=== PATIENT | female | born 1950 | race Caucasian/White ===

== ENCOUNTER 2017-08-25 13:14 | Emergency (ER) | payer BC ==
[2017-08-25 13:40] LABS: #Eosinphils 0.1 thou/uL (0.0-0.7); #Monocytes 0.6 thou/uL (0.11-0.59); #Neutrophils 4.5 thou/uL (1.40-6.50); %Basophils 0.7 % (0.0-1.0); %Eosinophils 1.7 % (0.0-10.0); %Monocytes 8.3 % (0.0-10.0); %Neutrophils 62.3 % (42.0-75.0); Hemoglobin 13.8 g/dL (12.0-16.0); Mean Corpuscular HGB CONC 33.6 g/dL (32.0-36.0); Mean Corpuscular Hemoglobin 30.4 pg (27.0-31.0); Mean Corpuscular Volume 90.5 fl (81.0-99.0); Mean Platelet Volume 9.5 fL (7.4-10.4); Platelet Count 156 thou/uL (130-400); RBC Distribution Width 11.9 % (11.5-14.5); Red Blood Cell (RBC) Count 4.55 mill/uL (4.20-5.40); White Blood Cell (WBC) Count 7.3 thou/uL (4.8-10.8)
--- NOTE | 2017-08-25 14:01 | RAD ---
PORTABLE CHEST: Date: 08/25/17 HISTORY: Dizziness. FINDINGS: Lungs are clear. Heart is mildly prominent, but stable from prior exam of 04/21/16. IMPRESSION: No acute findings. POS: [facility]
[2017-08-25 14:03] LABS: ALT (SGPT) 10 U/L (8-55); AST (SGOT) 16 U/L (5-34); Albumin 4.4 g/dL (3.4-4.8); Alkaline Phosphatase 72 U/L (40-150); Anion Gap 8 mmol/L (10-20); BUN (Urea Nitrogen) 13 mg/dL (9.8-20.1); Bilirubin, Total 0.6 mg/dL (0.2-1.2); CK (CPK) 134 U/L (29-168); Calc. Creatinine Clearance 0 mL/min (70-130); Calcium 9.4 mg/dL (7.8-10.44); Carbon Dioxide 32 mmol/L (23-31); Chloride 104 mmol/L (98-107); Estimated GFR-MDRD 71; Globulin 3.1 g/dL (2.4-3.5); Glucose 100 mg/dL (80-115); Protein, Total 7.5 g/dL (6.0-8.3); Sodium 140 mmol/L (136-145)
[2017-08-25 14:08] LABS: CKMB 4.1 ng/mL (0-6.6); Troponin I Less than 0.010 ng/mL (< 0.028)
[2017-08-25] MEDS ORDERED: Meclizine HCl 25 MG TAB ONE (14:22)
== END 2017-08-25 15:55 | disposition home or self-care (01) ==
LOC: ERS 13:14
DX: H81.10 Benign paroxysmal vertigo, unspecified ear (principal); E03.9 Hypothyroidism, unspecified; I10 Essential (primary) hypertension
CPT/HCPCS: 71045; 80053; 82553; 83690; 83880; 84484; 85025; 93005; 94760

== ENCOUNTER 2018-01-29 15:05 | Outpatient (CLI) | payer BC | END 2018-01-29 15:06 | disposition home or self-care (01) | LOC: BICMAMMO 15:05 | PROVIDERS: ATTEND Family Medicine | DX: Z12.31 Encounter for screening mammogram for malignant neoplasm of breast (principal); R92.1 Mammographic calcification found on diagnostic imaging of breast | CPT/HCPCS: 77063; 77067 ==

== ENCOUNTER 2018-04-23 11:30 | Observation (INO) | payer BC ==
[2018-04-23 12:16] LABS: #Basophils 0.1 thou/uL (0.0-0.2); #Eosinphils 0.1 thou/uL (0.0-0.7); #Lymphocytes 1.6 thou/uL (1.20-3.40); #Monocytes 0.5 thou/uL (0.11-0.59); #Neutrophils 5.3 thou/uL (1.40-6.50); %Basophils 0.7 % (0.0-1.0); %Eosinophils 1.6 % (0.0-10.0); %Lymphocytes 21.2 % (21.0-51.0); %Monocytes 6.4 % (0.0-10.0); %Neutrophils 70.1 % (42.0-75.0); Hemoglobin 13.3 g/dL (12.0-16.0); Mean Corpuscular HGB CONC 33.2 g/dL (32.0-36.0); Mean Corpuscular Hemoglobin 30.5 pg (27.0-31.0); Mean Corpuscular Volume 91.8 fL (78.0-98.0); Mean Platelet Volume 10.9 fL (7.4-10.4); Platelet Count 167 thou/uL (130-400); RBC Distribution Width 11.9 % (11.5-14.5); Red Blood Cell (RBC) Count 4.38 mill/uL (4.20-5.40); White Blood Cell (WBC) Count 7.6 thou/uL (4.8-10.8)
--- NOTE | 2018-04-23 12:16 | RAD ---
TWO VIEWS CHEST: Date: 04-23-18 Provided Clinical History: Chest pain. FINDINGS: Comparison 08-25-17. The cardiac silhouette remains enlarged. No focal consolidation, pleural fluid or pneumothorax appare nt. IMPRESSION: Cardiomegaly without evidence for an acute cardiopulmonary process. POS: [facility]
[2018-04-23 12:55] LABS: ALT (SGPT) 12 U/L (8-55); AST (SGOT) 18 U/L (5-34); Albumin 4.2 g/dL (3.4-4.8); Alkaline Phosphatase 61 U/L (40-150); Anion Gap 12 mmol/L (10-20); BUN (Urea Nitrogen) 18 mg/dL (9.8-20.1); Bilirubin, Total 0.7 mg/dL (0.2-1.2); CK (CPK) 111 U/L (29-168); Calc. Creatinine Clearance 0 mL/min (70-130); Calcium 9.5 mg/dL (7.8-10.44); Carbon Dioxide 27 mmol/L (23-31); Chloride 103 mmol/L (98-107); Estimated GFR-MDRD 57; Globulin 2.7 g/dL (2.4-3.5); Glucose 130 mg/dL (80-115); Potassium 4.4 mmol/L (3.5-5.1); Protein, Total 6.9 g/dL (6.0-8.3); Sodium 138 mmol/L (136-145)
[2018-04-23] MEDS ORDERED: Aspirin Chewable 81 MG TAB ONE (13:43)
[2018-04-23] MEDS ORDERED: Guaifenesin DM 100-10/5 ML UDCUP PO PRN (14:34)
[2018-04-23] MEDS ORDERED: Acetaminophen 325 MG TAB PO PRN (14:34)
[2018-04-23] MEDS ORDERED: Nitroglycerin 0.4 MG TAB (25 Tab Bottle) PO PRN (14:34)
[2018-04-23] MEDS ORDERED: Senokot S 8.6-50 MG TAB PO PRN (14:34)
--- NOTE | 2018-04-23 16:12 | HP ---
REASON FOR ADMISSION: Chest pain. HISTORY OF PRESENTING ILLNESS: The patient gives history of having off and on chest pain from the last 2 weeks. This was retrosternal, pressure-like, and associated with shortness of breath. These episodes were coming mostly on exertion. She felt like she had low energy after these episodes. She went to see Dr. Peres this morning and was found to have had elevated blood pressure and her EKG was abnormal in his office. She was sent to emergency room for further workup. Currently, has no complaints of chest pain, palpitations, PND, or orthopnea. No complaints of fever or myalgias. No cough or expectoration. PAST MEDICAL AND SURGICAL HISTORY: History of hypertension, but has not been on any medication as this got resolved previously. Hypothyroidism, prior history of thyroidectomy, left knee replacement, bilateral foot surgery, appendectomy, and tonsillectomy. CURRENT MEDICATIONS: The patient is on levothyroxine and pravastatin. ALLERGIES: NO KNOWN DRUG ALLERGIES. PERSONAL HISTORY: Does not abuse alcohol or drugs. No history of smoking. FAMILY HISTORY: Mother of leukemia and its complications at the age of 74 years. Father at the age of 92 years due to natural causes. Code status is full. Power of immigration attorney is her . REVIEW OF SYSTEMS: CONSTITUTIONAL: Negative for weight loss or gain, ability to conduct usual activities. SKIN: Negative for rash, itching. EYES: Negative for double vision, pain. ENT/MOUTH: Negative for nose bleeding, neck stiffness, pain, tenderness. CARDIOVASCULAR: Negative for palpitations, dyspnea on exertion, orthopnea. RESPIRATORY: Negative for shortness of breath, wheezing, cough, hemoptysis, fever or night sweats. GASTROINTESTINAL: Negative for poor appetite, abdominal pain, heartburn, nausea , vomiting, constipation, or diarrhea. GENITOURINARY: Negative for urgency, frequency, dysuria, nocturia. MUSCULOSKELETAL: Negative for pain, swelling. NEUROLOGIC/PSYCHIATRIC: Negative for anxiety, depression. ALLERGY/IMMUNOLOGIC: Negative for skin rash, bleeding tendency. PHYSICAL EXAMINATION: GENERAL: The patient is a 67-year-old female, who is currently not in any acute distress. VITAL SIGNS: Blood pressure 124/94, pulse 72 per minute, respiratory rate 18 per minute, temperature 97.8 degrees Fahrenheit, and saturating 95% on room air. NECK: Supple. No elevated JVD. HEENT: Eyes; extraocular muscles intact. Pupils reacting to light. Oral cavity, mucous membranes are moist. No exudates or congestion. CARDIOVASCULAR: S1 and S2 heard. Regular rhythm. RESPIRATORY SYSTEM: Air entry 1+ bilateral. No rales or rhonchi. ABDOMEN: Soft. Bowel sounds heard. No tenderness, rigidity, or guarding. EXTREMITIES: No peripheral edema or calf tenderness vascular system peripheral pulses 2+ bilateral. No ischemic ulcerations or gangrene. CENTRAL NERVOUS SYSTEM: No gross focal deficits noted. The patient is alert, awake, and oriented well. PSYCHIATRIC: The patient's mood is euthymic. No hallucinations or delusions. LABORATORY DATA: White count of 7, hemoglobin and hematocrit of 13 and 40, platelet count 167, MCV is 91 with 70% neutrophils. Electrolytes stable. BUN 18, creatinine 0.9, serum glucose 130. One set of troponin is negative. Liver enzymes are within normal limits. Albumin is 4.2. Chest x-ray, two view done shows cardiomegaly without any acute infiltrate. The patient has had a nuclear stress test done in April of 2016, which showed no reversible ischemia. Her EF was 67% with normal wall motion and thickening seen then. EKG done now shows normal sinus rhythm at 70 beats per minute. There is T-wave inversion seen in V5 and V6. There is also questionable Q-waves seen in V1 and V2. CLINICAL IMPRESSION AND PLAN: The patient will be under observation on telemetry for chest pain rule out acute coronary syndrome. She has had exertional chest pain. The patient has had prior stress test done in April of 2016 and we will repeat another stress test in view of new EKG changes in the septal and lateral wall. We will also obtain Cardiology consultation with Dr. Moody who is education program associate in view of the patient's typical chest pain. She will be on full-dose aspirin, small dose of lopressor which she will be on full-dose aspirin. We will continue Lipitor, Synthroid, small dose of Lopressor for now. Echo with 2D Doppler for LV function in view of cardiomegaly seen on chest x-ray. Free T3, free T4 with TSH in view of low energy issues to rule out to adequately dose her levothyroxine if needed. She will be kept n.p.o. after midnight. The patient had a coffee earlier this morning. Job ID: [id number] [facility]
[2018-04-23 16:28] LABS: Troponin I Less than 0.010 ng/mL (< 0.028)
[2018-04-23 16:47] LABS: Free T4 (Free Thyroxine) 1.1 ng/dL (0.70-1.48); Thyroid Stimulating Hormone 1.5876 uIU/mL (0.35-4.94)
[2018-04-23 19:04] LABS: Troponin I Less than 0.010 ng/mL (< 0.028)
[2018-04-23] MEDS: Atorvastatin Calcium 10 MG TAB PO SCH (20:38)
[2018-04-23] MEDS ORDERED: Metoprolol Tartrate 25 MG TAB PO SCH (21:00)
[2018-04-24 05:40] LABS: #Eosinphils 0.1 thou/uL (0.0-0.7); #Lymphocytes 1.8 thou/uL (1.20-3.40); #Monocytes 0.6 thou/uL (0.11-0.59); #Neutrophils 3.7 thou/uL (1.40-6.50); %Basophils 0.8 % (0.0-1.0); %Eosinophils 2.3 % (0.0-10.0); %Lymphocytes 28.5 % (21.0-51.0); %Monocytes 9.1 % (0.0-10.0); %Neutrophils 59.4 % (42.0-75.0); Hemoglobin 12.1 g/dL (12.0-16.0); Mean Corpuscular HGB CONC 32.8 g/dL (32.0-36.0); Mean Corpuscular Hemoglobin 30.6 pg (27.0-31.0); Mean Corpuscular Volume 93.3 fL (78.0-98.0); Mean Platelet Volume 10.8 fL (7.4-10.4); Platelet Count 144 thou/uL (130-400); RBC Distribution Width 12.1 % (11.5-14.5); Red Blood Cell (RBC) Count 3.96 mill/uL (4.20-5.40); White Blood Cell (WBC) Count 6.2 thou/uL (4.8-10.8)
[2018-04-24 06:01] LABS: Anion Gap 11 mmol/L (10-20); BUN (Urea Nitrogen) 21 mg/dL (9.8-20.1); Calc. Creatinine Clearance 93 mL/min (70-130); Calcium 9.3 mg/dL (7.8-10.44); Carbon Dioxide 26 mmol/L (23-31); Cardiac Risk 2.4 (Less than 4.5); Chloride 106 mmol/L (98-107); Cholesterol 132 mg/dl (< 200 Desired); Estimated GFR-MDRD 68; Glucose 89 mg/dL (80-115); HDL Cholesterol 54 mg/dL (>60 Neg Risk); LDL Cholesterol, Calculated 62 mg/dL; Potassium 4.2 mmol/L (3.5-5.1); Sodium 139 mmol/L (136-145); Triglycerides 80 mg/dL (Less than 150)
[2018-04-24] MEDS: Levothyroxine Sodium 50 MCG TAB PO SCH (06:03)
[2018-04-24] MEDS ORDERED: Enoxaparin Sodium 40 MG/0.4 ML SYRINGE SC SCH (09:00)
[2018-04-24] MEDS ORDERED: ADENOSINE 60 MG/20 ML VIAL ONE (09:08)
[2018-04-24] MEDS: Aspirin 325 MG TAB PO SCH (10:56)
--- NOTE | 2018-04-24 12:18 | PDOC.PN ---
- Subjective Encounter Start Date: 04/24/18 Encounter Start Time: 09:40 Subjective: no chest pain or palp -: at bedside confirms she snores and might have apneic spells - Objective Resuscitation Status - Order Detail: 04/23/18 14:30 Resuscitation Status Routine Resuscitation Status: FULL: Full Resuscitation MAR Reviewed: Yes Vital Signs & Weight: Vital Signs (12 hours) Temp Pulse Resp BP BP Pulse Ox 04/24/18 11:55 98.1 F 60 16 134/62 96 04/24/18 07:10 98.8 F 52 L 16 144/70 H 93 L 04/24/18 04:23 97.9 F 50 L 16 147/65 H 93 L Weight Weight 200 lb 12.8 oz I&O: 04/23/18 04/24/18 04/25/18 06:59 06:59 06:59 Intake Total 810 Output Total 200 Balance 610 Result Diagrams: 04/24/18 04:55 04/24/18 04:55 Phys Exam - Physical Examination HEENT: PERRLA, moist MMs Neck: no JVD, supple Respiratory: no wheezing, no rales Cardiovascular: RRR, no significant murmur Gastrointestinal: soft, non-tender, positive bowel sounds Musculoskeletal: no edema, pulses present Neurological: non-focal, moves all 4 limbs Psychiatric: normal affect, A&O x 3 Dx/Plan (1) Chest pain Code(s): R07.9 - CHEST PAIN, UNSPECIFIED Status: Acute (2) HTN (hypertension) Code(s): I10 - ESSENTIAL (PRIMARY) HYPERTENSION Status: Acute Qualifiers: Hypertension type: essential hypertension Qualified Code(s): I10 - Essential (primary) hypertension Comment: mild (3) Obesity (BMI 30.0-34.9) Code(s): E66.9 - OBESITY, UNSPECIFIED Status: Chronic (4) ERASTO (obstructive sleep apnea) Code(s): G47.33 - OBSTRUCTIVE SLEEP APNEA (ADULT) (PEDIATRIC) Status: Suspected (5) Hypothyroidism Code(s): E03.9 - HYPOTHYROIDISM, UNSPECIFIED Status: Chronic Qualifiers: Hypothyroidism type: unspecified Qualified Code(s): E03.9 - Hypothyroidism , unspecified (6) Dyslipidemia Code(s): E78.5 - HYPERLIPIDEMIA, UNSPECIFIED Status: Chronic - Plan await stress test results -: hemostable, continue asp, lipitor and synthroid -: trop x 3 -ve, ldl is 62, no BB as pt got bradycardic this am -: await cardiology opinion in view of exertional chest pain with sob -: recent weight gain and symptoms s/o ERASTO for outpt sleep study via pcp * . Review of Systems - Medications/Allergies Allergies/Adverse Reactions: Allergies Allergy/AdvReac Type Severity Reaction Status Date / Time No Known Allergies Allergy Verified 04/22/16 02:53 Medications: Current Medications Acetaminophen (Tylenol) 650 mg PO Q4H PRN PRN Reason: Headache/Fever/Mild Pain (1-3) Aspirin (Aspirin) 325 mg PO DAILY [facility] Last Admin: 04/24/18 10:56 Dose: Not Given Atorvastatin Calcium (Lipitor) 10 mg PO HS [facility] Last Admin: 04/23/18 20:38 Dose: 10 mg Enoxaparin Sodium (Lovenox) 40 mg SC 0900 [facility] Last Admin: 04/24/18 10:56 Dose: Not Given Guaifenesin/Dextromethorphan (Robitussin Dm) 15 ml PO Q4H PRN PRN Reason: Cough Influenza Virus Vacc Triv Types A&B (Fluzone High-Dose 2017- Syr) 0.5 ml IM .ONCE ONE Stop: 04/24/18 21:01 Levothyroxine Sodium (Synthroid) 50 mcg PO 0600 [facility] Last Admin: 04/24/18 06:03 Dose: 50 mcg Nitroglycerin (Nitrostat) 0.4 mg PO Q5MIN PRN PRN Reason: Chest Pain Senna/Docusate Sodium (Senokot S) 2 tab PO BID PRN PRN Reason: Constipation
[2018-04-24] MEDS ORDERED: Communication Order-Pharmacy FS SCH (13:00)
--- NOTE | 2018-04-24 15:10 | CON ---
DATE OF CONSULTATION: HISTORY OF PRESENT ILLNESS: The patient is a 67-year-old woman, who presents with increasing dyspnea and chest discomfort. The patient has a previous history of chest pain. She was seen in May of 2014. She underwent a stress test and was found to have normal left ventricular ejection fraction of 57% with no evidence of ischemia. She was noted to have left ventricular hypertrophy on her electrocardiogram. The patient was started on antihypertensive medications. The patient was then readmitted in April here in 2016 with atypical chest pain. She underwent a Cardiolite stress test and was found to have normal left ventricular ejection fraction of 67% with no evidence of ischemia. The patient was in her usual state of health until a month ago when she started having dyspnea. She reports this occurs with minimal exertion. She states that she also develops midsternal chest pain that is relieved at rest. She also states at times this chest pain is present when she is sitting. The patient denies having any PND or orthopnea. PAST MEDICAL HISTORY: 1. Hypertension. 2. Dyslipidemia. 3. Thyroid disorder. 4. Anxiety. PAST SURGICAL HISTORY: Hysterectomy, thyroid surgery, appendectomy, foot surgery , and knee surgery. SOCIAL HISTORY: Nonsmoker. MEDICATIONS: 1. Synthroid 50 mcg daily. 2. Pravachol 40 at bedtime. ALLERGIES: NO KNOWN DRUG ALLERGIES. REVIEW OF SYSTEMS: Ten point system otherwise unremarkable. No history of easy bruising or bleeding. PHYSICAL EXAMINATION: GENERAL: Obese woman, in no acute distress. VITAL SIGNS: Blood pressure was 134/64. NECK: No jugular venous distention. LUNGS: Clear to auscultation. HEART: Regular rate and rhythm. Normal S1, S2. No murmurs. ABDOMEN: Nondistended. EXTREMITIES: Showed no edema. Vascular radial pulses are 2+. LABORATORY RESULTS: Sodium 139, potassium 4.2, chloride 106, bicarb 26, BUN 21, creatinine 2.8, and glucose 68. Troponin less than 0.01. BNP 142. TSH was 1.58. Her EKG revealed normal sinus rhythm with left ventricular hypertrophy and T- wave abnormality suggestive of a repolarization abnormality. IMPRESSION: 1. Chest pain with some features suggestive of angina. 2. Dyspnea. 3. Hypertension. 4. Obesity. This patient presents with chest discomfort and dyspnea. Her cardiac enzymes revealed no evidence of myocardial infarction. The patient underwent a stress test today. We will check the patient's results. The patient has evidence of severe left ventricular hypertrophy. It is unclear why she is no longer on antihypertensive medications. We will check the patient's echocardiogram. We will follow this patient with you through her hospitalization. Job ID: [id number] [facility]
[2018-04-24] MEDS: Carvedilol 6.25 MG TAB PO SCH (17:35)
[2018-04-24] MEDS: Atorvastatin Calcium 10 MG TAB PO SCH (21:08)
[2018-04-25] MEDS: Carvedilol 6.25 MG TAB PO SCH (05:43)
[2018-04-25] MEDS: Levothyroxine Sodium 50 MCG TAB PO SCH (05:44)
[2018-04-25] MEDS: Aspirin 325 MG TAB PO SCH (05:44)
[2018-04-25] MEDS ORDERED: Nitroglycerin 100MG/250ML BOT 0 ML ONE (08:11)
[2018-04-25] MEDS ORDERED: Heparin 10,000 UNITS/1 ML VIAL ONE (08:11)
[2018-04-25 08:29] VITALS: TEMP 98.5
--- NOTE | 2018-04-25 08:54 | NM ---
STRESS ONLY MYOCARDIAL PERFUSION STUDY: 04/24/2018 HISTORY: Chest pain. The patient was scheduled to return today for the resting portion of the study, but the patient was b eing taken to the labor custodian for further evaluation and, as a result, only stress images were provided. RADIOPHARMACEUTICAL: Technetium 99m sestamibi 33 millicuries IV at stress. FINDINGS: No significant defect is present on the stress images to suggest an area of scarring or ischemia. Ga amber images demonstrate normal ventricular wall motion and wall thickening. The calculated left ventr icular ejection fraction is 58%. The left ventricular ejection fraction on the prior study of 2016 was 67%. IMPRESSION: 1. Stress only myocardial perfusion study without a significant defect visualized to suggest an area of ischemia or scarring. 2. Normal left ventricular ejection fraction of 58%. However, the left ventricular ejection fractio n is diminished compared to prior study in 2017, when the left ventricular ejection fraction was 67%. POS: [facility]
[2018-04-25] MEDS ORDERED: Midazolam HCl 2 mg/2 ml Vial ONE (09:10)
[2018-04-25] MEDS ORDERED: Nitroglycerin 0.4 MG TAB (25 Tab Bottle) SL PRN (09:29)
[2018-04-25] MEDS ORDERED: Acetaminophen/Codeine 30-300mg Tablet PO PRN ×2 (09:29)
[2018-04-25] MEDS ORDERED: Sodium Chloride 0.9% 200 ML IV PRN (09:29)
[2018-04-25] MEDS ORDERED: Iopamidol 370 76% 100 ML VIAL ONE (10:51)
--- NOTE | 2018-04-25 11:30 | PDOC.PN ---
- Subjective Encounter Start Date: 04/25/18 Encounter Start Time: 09:45 Subjective: no chest pain or sob or palp - Objective Resuscitation Status - Order Detail: 04/23/18 14:30 Resuscitation Status Routine Resuscitation Status: FULL: Full Resuscitation MAR Reviewed: Yes Vital Signs & Weight: Vital Signs (12 hours) Temp Pulse Resp BP BP Pulse Ox 04/25/18 08:00 98.5 F 54 L 16 154/62 H 96 04/25/18 05:43 144/61 H 04/25/18 04:45 97.9 F 55 L 16 144/61 H 94 L Weight Weight 200 lb 12.8 oz I&O: 04/24/18 04/25/18 04/26/18 06:59 06:59 06:59 Intake Total 810 1320 Output Total 200 Balance 610 1320 Result Diagrams: 04/24/18 04:55 04/24/18 04:55 Phys Exam - Physical Examination HEENT: PERRLA, moist MMs Neck: no JVD, supple Respiratory: no wheezing, no rales Cardiovascular: RRR, no significant murmur Gastrointestinal: soft, non-tender, positive bowel sounds Musculoskeletal: no edema, pulses present Neurological: non-focal, moves all 4 limbs Psychiatric: normal affect, A&O x 3 Dx/Plan (1) Chest pain Code(s): R07.9 - CHEST PAIN, UNSPECIFIED Status: Acute Comment: non cardiac , cath normal coronaries (2) HTN (hypertension) Code(s): I10 - ESSENTIAL (PRIMARY) HYPERTENSION Status: Acute Qualifiers: Hypertension type: essential hypertension Qualified Code(s): I10 - Essential (primary) hypertension Comment: mild (3) Obesity (BMI 30.0-34.9) Code(s): E66.9 - OBESITY, UNSPECIFIED Status: Chronic (4) ERASTO (obstructive sleep apnea) Code(s): G47.33 - OBSTRUCTIVE SLEEP APNEA (ADULT) (PEDIATRIC) Status: Suspected (5) Hypothyroidism Code(s): E03.9 - HYPOTHYROIDISM, UNSPECIFIED Status: Chronic Qualifiers: Hypothyroidism type: unspecified Qualified Code(s): E03.9 - Hypothyroidism , unspecified (6) Dyslipidemia Code(s): E78.5 - HYPERLIPIDEMIA, UNSPECIFIED Status: Chronic - Plan cath showed normal coronaries -: may dc home if ok with cardiology -: to have outpt sleep study via pcp referal -: continue coreg, pravachol * . Review of Systems - Medications/Allergies Allergies/Adverse Reactions: Allergies Allergy/AdvReac Type Severity Reaction Status Date / Time No Known Allergies Allergy Verified 04/22/16 02:53 Medications: Current Medications Acetaminophen (Tylenol) 650 mg PO Q4H PRN PRN Reason: Headache/Fever/Mild Pain (1-3) Acetaminophen/Codeine Phosphate (Tylenol #3) 1 tab PO Q4H PRN PRN Reason: Mild Pain (1-3) Acetaminophen/Codeine Phosphate (Tylenol #3) 2 tab PO Q4H PRN PRN Reason: Moderate Pain (4-6) Aspirin (Aspirin) 325 mg PO DAILY [facility] Last Admin: 04/25/18 05:44 Dose: 325 mg Atorvastatin Calcium (Lipitor) 10 mg PO HS [facility] Last Admin: 04/24/18 21:08 Dose: 10 mg Carvedilol (Coreg) 6.25 mg PO BID-WM [facility] Last Admin: 04/25/18 05:43 Dose: 6.25 mg Guaifenesin/Dextromethorphan (Robitussin Dm) 15 ml PO Q4H PRN PRN Reason: Cough Sodium Chloride (Normal Saline 0.9%) 200 mls @ 0 mls/hr IV ONE PRN PRN Reason: SBP < 90 Stop: 04/25/18 12:00 Levothyroxine Sodium (Synthroid) 50 mcg PO 0600 [facility] Last Admin: 04/25/18 05:44 Dose: 50 mcg Miscellaneous Information (Communication Order-Pharmacy) 0 each FS ONE [facility] Stop: 04/25/18 13:01 Nitroglycerin (Nitrostat) 0.4 mg SL Q5MIN PRN PRN Reason: Chest Pain Senna/Docusate Sodium (Senokot S) 2 tab PO BID PRN PRN Reason: Constipation Sodium Chloride (Flush - Normal Saline) 10 ml IVF Q12HR [facility] Sodium Chloride (Flush - Normal Saline) 10 ml IVF PRN PRN PRN Reason: Saline Flush
--- NOTE | 2018-04-25 16:02 | DIS ---
DATE OF ADMISSION: 04/23/2018 DATE OF DISCHARGE: 04/25/2018 DISCHARGE DISPOSITION: Home. PRIMARY DISCHARGE DIAGNOSIS: Chest pain, which is noncardiac. SECONDARY DISCHARGE DIAGNOSES: 1. Hypertension. 2. Hypothyroidism. 3. Dyslipidemia. 4. Obesity. 5. Possible obstructive sleep apnea. PROCEDURES DONE DURING HOSPITALIZATION: The patient had a chest x-ray done on the day of admission, which showed cardiomegaly without acute cardiopulmonary disease. Stress only myocardial perfusion study done showed no significant defect to suggest area of ischemia or scarring. Ejection fraction was 58%. Cardiac catheterization showed normal coronaries. Echo with 2D Doppler showed EF of 45%-50%, moderate concentric LVH was seen. H and H 12 and 36, platelet count 144, MCV is 93. Total cholesterol 132, triglycerides 80, LDL 62, HDL 54. Free T3 of 2.3. Free T4 of 1.1. TSH 1.58. BNP 142. Troponin x3 was negative. INPATIENT CONSULT: Dr. Chen for Cardiology. DISCHARGE MEDICATION: 1. Levothyroxine 75 mcg p.o. daily. 2. Pravastatin 80 mg p.o. at bedtime. 3. Coreg 6.25 mg p.o. twice daily. 4. Lisinopril 2.5 mg p.o. daily. ALLERGIES: NO KNOWN DRUG ALLERGIES. DISCHARGE PLAN: The patient to follow up with Dr. Chen as advised and primary care physician in one week. BRIEF COURSE DURING HOSPITALIZATION: The patient initially came in with complaints of chest pain which was off and on and was exertion related. This was pressure- like and was associated with shortness of breath as well. She initially had gone to see Dr. Peres, her primary care physician, who referred her to the emergency room here. She was placed under observation on telemetry to rule out acute coronary syndrome. Three sets of troponin were negative and a nuclear stress test done showed no reversible ischemia. The patient had a previous stress test done in 2017 with similar complaints. In view of recurrent chest pains, the patient had Cardiology consultation with Dr. Chen. Coronary angiogram done showed normal coronaries. Her ejection fraction on the echo was 45% to 50%. The patient was placed on Coreg and a small dose of lisinopril. The patient likely has underlying hypertension and has been untreated so far. The patient says she was treated before, but her pressure dropped down and she discontinued the medications. She has been advised to check her blood pressure and pulse twice daily and record to follow up with her primary care physician in one week. The patient likely has underlying sleep apnea and has been advised to follow up with Dr. Peres for referral for sleep study. She is hemodynamically stable and has been cleared by Dr. Chen for discharge. Please see a [id number] documentation for the day of discharge on Sold. Job ID: [id number] [facility]TDD
[2018-04-25 17:10] VITALS: BP 160/72
[2018-04-25] MEDS ORDERED: Lisinopril 5 MG TAB PO SCH (21:00)
== END 2018-04-25 17:41 | disposition home or self-care (01) ==
LOC: ERS 11:30 → 2SW 14:06
PROVIDERS: ADMIT Internal Medicine; ATTEND Internal Medicine
PROC: 4A023N7 Measurement of Cardiac Sampling and Pressure, Left Heart, Percutaneous Approach (ICD-10-PCS; principal; 2018-04-25)
PROC: B2111ZZ Fluoroscopy of Multiple Coronary Arteries using Low Osmolar Contrast (ICD-10-PCS; 2018-04-25)
DX: R07.89 Other chest pain (principal); I10 Essential (primary) hypertension; E03.9 Hypothyroidism, unspecified; E78.5 Hyperlipidemia, unspecified; E66.9 Obesity, unspecified; Z68.31 Body mass index [BMI] 31.0-31.9, adult
CPT/HCPCS: 36415; 71046; 78452; 80048; 80053; 80061; 82550; 83880; 84439; 84443; 84481; 84484; 85025; 93005; 93017; 93306; 93458; 94760; 99152; 99153; A9500; C1769; G0378; J0153; J1644; J2250; Q9967

== ENCOUNTER 2019-04-05 08:05 | Outpatient (CLI) | payer BC ==
--- NOTE | 2019-04-05 10:31 | MMO ---
Bilateral MAMMO Bilat Screen [facility]. CLINICAL HISTORY: Patient is 68 years old and is seen for screening. The patient has no family history of breast cancer. The patient has no personal history of cancer. VIEWS: The views performed were: bilateral craniocaudal with tomosynthesis and bilateral mediolateral oblique with tomosynthesis. FILMS COMPARED: The present examination has been compared to prior imaging studies performed at [facility] on 01/29/2018, and at [facility] on 09/25/2012, 10/04/2013 and 01/19/2015. This study has been interpreted with the assistance of computer-aided detection. MAMMOGRAM FINDINGS: There are scattered fibroglandular densities. There are benign appearing calcifications seen in both breasts. There are no suspicious masses, suspicious calcifications, or new areas of architectural distortion. IMPRESSION: THERE IS NO MAMMOGRAPHIC EVIDENCE OF MALIGNANCY. A ROUTINE FOLLOW-UP MAMMOGRAM IN 1 YEAR IS RECOMMENDED. THE RESULTS OF THIS EXAM WERE SENT TO THE PATIENT. ACR BI-RADS Category 2 - Benign finding MAMMOGRAPHY NOTE: 1. A negative mammogram report should not delay a biopsy if a dominant of clinically suspicious mass is present. 2. Approximately 10% to 15% of breast cancers are not detected by mammography. 3. Adenosis and dense breasts may obscure an underlying neoplasm. Reported by: MARSHALL DANIEL MD Electonically Signed: [id number]
== END 2019-04-05 08:06 | disposition home or self-care (01) ==
LOC: BICMAMMO 08:05
PROVIDERS: ATTEND Family Medicine
DX: Z12.31 Encounter for screening mammogram for malignant neoplasm of breast (principal)
CPT/HCPCS: 77063; 77067

== ENCOUNTER 2020-06-30 08:44 | Outpatient (CLI) | payer MEDICARE | END 2020-06-30 08:45 | disposition home or self-care (01) | LOC: BICMAMMO 08:44 | PROVIDERS: ATTEND Family Medicine | DX: Z12.31 Encounter for screening mammogram for malignant neoplasm of breast (principal) | CPT/HCPCS: 77063; 77067 ==

== ENCOUNTER 2021-08-25 12:13 | Outpatient (CLI) | payer MEDICARE | END 2021-08-25 12:14 | disposition home or self-care (01) | LOC: BICMAMMO 12:13 | PROVIDERS: ATTEND Family Medicine | DX: Z12.31 Encounter for screening mammogram for malignant neoplasm of breast (principal) | CPT/HCPCS: 77063; 77067 ==

== ENCOUNTER 2023-08-15 08:46 | Outpatient (CLI) | payer OTHER | END 2023-08-15 08:47 | disposition home or self-care (01) | LOC: BICCT 08:46 | PROVIDERS: ATTEND Orthopaedic Surgery | DX: M17.11 Unilateral primary osteoarthritis, right knee (principal) ==

== ENCOUNTER 2023-08-23 08:46 | Outpatient (CLI) | payer OTHER ==
[2023-08-23 10:50] LABS: Bilirubin Neg (Negative); Blood, Urine Negative (Negative); Clarity Clear (Clear); Glucose, Urine (Dipstick) Normal (Negative); Ketone, Urine Negative (Negative); Leukocyte 100 (Negative); Nitrite Negative (Negative); Protein, Urine (Dipstick) 30 mg/dl (Neg-Trace)
[2023-08-23 10:54] LABS: #Basophils 0.03 10x3/uL (0.0-0.2); #Eosinphils 0.12 10x3/uL (0.0-0.5); #Monocytes 0.73 10x3/uL (0.0-1.1); #Neutrophils 4.83 10x3/uL (1.5-8.4); %Basophils 0.4 % (0.0-2.0); %Eosinophils 1.6 % (0.0-6.0); %Lymphocytes 24.6 % (18.0-47.0); %Monocytes 9.6 % (0.0-10.0); %Neutrophils 63.5 % (40.0-75.0); Hematocrit 42.2 % (34.9-44.5); Hemoglobin 14.1 g/dL (12.0-15.5); Mean Corpuscular HGB CONC 33.4 g/dL (32.0-36.0); Mean Corpuscular Hemoglobin 30.7 pg (27.0-33.0); Mean Corpuscular Volume 91.7 fL (81.6-98.3); Platelet Count 183 10x3/uL (150-450); White Blood Cell (WBC) Count 7.6 10x3/uL (3.5-10.5)
[2023-08-23 10:58] LABS: Prothrombin Time 10.6 sec (9.5-12.1)
[2023-08-23 10:59] LABS: Anion Gap 13 mmol/L (10-20); BUN (Urea Nitrogen) 15 mg/dL (9.8-20.1); Calc. Creatinine Clearance 0 mL/min (70-130); Calcium 9.6 mg/dL (7.8-10.44); Carbon Dioxide 30 mmol/L (23-31); Chloride 102 mmol/L (98-107); Estimated GFR 62; Glucose 76 mg/dL (83-110); Potassium 4.3 mmol/L (3.5-5.1); Sodium 141 mmol/L (136-145)
== END 2023-08-23 08:47 | disposition home or self-care (01) ==
LOC: LABBT 08:46
PROVIDERS: ATTEND Orthopaedic Surgery
DX: Z01.818 Encounter for other preprocedural examination (principal); M17.11 Unilateral primary osteoarthritis, right knee
CPT/HCPCS: 71046; 80048; 81003; 85025; 85610; 87081; 93005; 93010

== ENCOUNTER 2023-08-28 08:15 | Observation (INO) | payer OTHER ==
[2023-08-28] MEDS ORDERED: Vancomycin (BATCH) 1.5 GM/300 ML BAG ONE (08:20)
[2023-08-28] MEDS ORDERED: CEFAZOLIN 2 GM VIAL ONE (08:20)
[2023-08-28] MEDS ORDERED: Tranexamic Acid 1,000 MG/10 ML VIAL ONE ×2 (08:20→12:22)
[2023-08-28] MEDS ORDERED: Sodium Chloride 0.9% 100 ML ONE ×2 (08:22→08:23)
[2023-08-28] MEDS ORDERED: Bupivacaine PF 0.5% 30 ML VIAL ONE ×2 (08:46→09:59)
[2023-08-28] MEDS ORDERED: fentaNYL 50 mcg/mL 1 mL Vial ONE ×3 (08:46→11:18)
[2023-08-28] MEDS ORDERED: Midazolam HCl 2 mg/2 ml Vial ONE (08:46)
[2023-08-28] MEDS ORDERED: fentaNYL 50 mcg/mL 1 mL Vial SLOW IVP PRN (09:29)
[2023-08-28] MEDS ORDERED: HYDROcodone/Acetaminophen 10/325 mg Tablet PO PRN ×2 (09:30)
[2023-08-28] MEDS ORDERED: Ondansetron PF 4 MG/2 ML Vial IVP PRN ×2 (09:30→12:15)
[2023-08-28] MEDS ORDERED: traMADol HCl 50 MG TAB PO PRN ×2 (09:30)
[2023-08-28] MEDS ORDERED: Ropivacaine 0.2% 550 ML 550 ML NERVE BLCK SCH (09:30)
[2023-08-28] MEDS ORDERED: Promethazine HCl 25 MG/ML VIAL IM PRN ×2 (09:30→12:15)
[2023-08-28] MEDS ORDERED: Zolpidem Tartrate 5 MG TAB PO PRN ×2 (09:30→12:15)
[2023-08-28] MEDS ORDERED: EPINEPHrine 1 MG/ML VIAL ONE (09:59)
[2023-08-28] MEDS ORDERED: Dexamethasone 4 mg/ml Vial ONE (10:13)
[2023-08-28] MEDS ORDERED: PROPOFOL 20 ML ONE (10:13)
[2023-08-28] MEDS ORDERED: Ondansetron PF 4 MG/2 ML Vial ONE (10:13)
[2023-08-28] MEDS ORDERED: Lidocaine 1% PF 5 ML VIAL ONE (10:13)
[2023-08-28] MEDS ORDERED: ePHEDrine Sulfate 50 MG/10 ML VIAL ONE (10:29)
[2023-08-28] MEDS ORDERED: Glycopyrrolate 0.2 MG/ML 5 ML SYRINGE ONE (10:33)
[2023-08-28] MEDS ORDERED: fentaNYL PF 100 MCG/2 ML SYRINGE ONE (11:38)
[2023-08-28] MEDS: Ketorolac Tromethamine 30 MG (1 mL) VIAL IVP SCH (12:00)
[2023-08-28] MEDS ORDERED: Tranexamic Acid 1,000 MG in Sodium Chloride 0.9% 100 ML IVPB SCH (12:15)
[2023-08-28] MEDS ORDERED: diphenhydrAMINE 25 MG CAP PO PRN (12:15)
[2023-08-28] MEDS ORDERED: Acetaminophen 325 MG TAB PO PRN (12:15)
[2023-08-28] MEDS ORDERED: Meperidine HCl/PF 25 MG (1 mL) VIAL ONE (12:22)
[2023-08-28 14:50] VITALS: BMI 32.5
[2023-08-28] MEDS: Sodium Chloride 0.9% 1,000 ML IV SCH (17:08)
[2023-08-28] MEDS: CEFAZOLIN 2 GM in Sodium Chloride 0.9% 100 ML IVPB SCH (17:08)
[2023-08-28] MEDS: Aspirin 81 mg Enteric Coated Tablet PO SCH (21:01)
[2023-08-28] MEDS: Vancomycin (BATCH) 1.5 GM in Premix 1 BAG IVPB SCH (21:01)
[2023-08-29 05:31] LABS: Hemoglobin 11.4 g/dL (12.0-16.0); Mean Corpuscular HGB CONC 31.7 g/dL (32.0-36.0); Mean Corpuscular Hemoglobin 29.8 pg (27.0-31.0); Mean Corpuscular Volume 94.2 fL (78.0-98.0); Mean Platelet Volume 12.7 fL (7.4-10.4); Platelet Count 154 10x3/uL (130-400); RBC Distribution Width 13.3 % (11.5-14.5); Red Blood Cell (RBC) Count 3.82 mill/uL (4.20-5.40)
[2023-08-29 07:58] VITALS: BP 125/76; TEMP 98.1
[2023-08-29] MEDS: Ferrous Gluconate 324 MG TAB PO SCH (08:38)
[2023-08-29] MEDS: Senokot S 8.6-50 MG TAB PO SCH (08:38)
[2023-08-29] MEDS ORDERED: Multivitamin W/ Minerals 1 TAB PO SCH (09:00)
== END 2023-08-29 10:20 | disposition home or self-care (01) ==
LOC: SDC 08:15 → SJJU 13:11
PROVIDERS: ADMIT Orthopaedic Surgery; ATTEND Orthopaedic Surgery
PROC: 0SRC0JZ Replacement of Right Knee Joint with Synthetic Substitute, Open Approach (ICD-10-PCS; principal; 2023-08-28)
DX: M17.11 Unilateral primary osteoarthritis, right knee (principal); E03.9 Hypothyroidism, unspecified; I25.10 Atherosclerotic heart disease of native coronary artery without angina pectoris; Z90.49 Acquired absence of other specified parts of digestive tract; Z90.89 Acquired absence of other organs; Z90.710 Acquired absence of both cervix and uterus; Z96.652 Presence of left artificial knee joint; Z98.890 Other specified postprocedural states; Z98.49 Cataract extraction status, unspecified eye; Z79.890 Hormone replacement therapy; Z79.899 Other long term (current) drug therapy
CPT/HCPCS: 27447; 64447; 85027; 97110 ×2; 97116 ×2; 97530 ×2; A4306; C1713; C1776; C1889; J0171; J0665; J1100; J1885 ×2; J2175; J2250; J2405; J2704; J2795; J3010; J3370; J3490 ×2; J7050; 36415